=== PATIENT | female | born 1955 | race Caucasian/White ===

== ENCOUNTER 2017-07-03 11:55 | Emergency (ER) | payer OTHER ==
[2017-07-03 12:12] VITALS: BP 192/100
--- NOTE | 2017-07-03 12:34 | ED ---
Syncope/Near Syncope - HPI Summary HPI Summary: 61 yo WF h/o pituitary adenoma s/p removal 1 week ago and "CSF leak" priscila- operative period presents s/p recurrent syncopal episode while here to get a post-op lab work. Her surgery was at [facility] but has been having orthostatic dizziness with changes in position but has been steadily getting worse in the last week, now feels dizzy in sitting position, denies CP, current SBP 190, normal SBP per pt is 115 - History Of Current Complaint Chief Complaint: UCDizziness Time Seen by Provider: 07/03/17 12:02 Hx Obtained From: Patient Onset/Duration: Sudden Onset Timing: Seconds Context: Witnessed Aggravating Factor(s): Nothing Alleviating Factor(s): Nothing Associated Signs And Symptoms: Diaphoresis, Dizzy, Weakness - Allergies/Home Medications Allergies/Adverse Reactions: Allergies Allergy/AdvReac Type Severity Reaction Status Date / Time MS Sesame Oil [Sesame Oil] Allergy Anaphylatic Verified 07/03/17 12:12 Shock PUMPKIN SEEDS Allergy Anaphylatic Uncoded 07/03/17 12:12 Shock sesame Allergy Anaphylatic Uncoded 07/03/17 12:12 Shock Home Medications: Home Medications Cholecalciferol TAB* [Vitamin D TAB*] 1 tab PO DAILY 07/03/17 [History Confirmed 07/03/17] Cyanocobalamin (Vitamin B-12) [Vitamin B12] 1 tab PO DAILY 07/03/17 [History Confirmed 07/03/17] PMH/Surg Hx/FS Hx/Imm Hx Previously Healthy: No - Pimtuitary adenoma removal last week Endocrine/Hematology History: Denies: Hx Diabetes, Hx Thyroid Disease Cardiovascular History: Denies: Hx Hypertension, Hx Pacemaker/ICD Respiratory History: Reports: Hx Asthma Denies: Hx Chronic Obstructive Pulmonary Disease (COPD) GI History: Denies: Hx Ulcer History: Denies: Hx Renal Disease Musculoskeletal History: Denies: Hx Scoliosis Sensory History: Reports: Hx Hearing Aid Neurological History: Reports: Hx Headaches Denies: Other Neuro Impairments/Disorders Psychiatric History: Denies: Hx Panic Disorder - Cancer History Cancer Type, Location and Year: Pituitary adenoma - Surgical History Surgery Procedure, Year, and Place: 06/23 - REMOVAL OF PITUITARY MACROADINOMA - THROUGH SINUSES; BUNIONECTOMY- Rt ( NO METAL) Infectious Disease History: No Infectious Disease History: Denies: Hx Hepatitis, Hx Human Immunodeficiency Virus (HIV), Traveled Outside the [place] in Last 30 Days - Social History Alcohol Use: Daily Substance Use Type: Reports: None Hx Tobacco Use: No Smoking Status (MU): Former Smoker Review of Systems Positive: Fatigue, Skin Diaphoresis Eyes: Negative ENT: Negative Cardiovascular: Negative Respiratory: Negative Gastrointestinal: Negative Genitourinary: Negative Musculoskeletal: Negative Skin: Negative Positive: Weakness, Syncope. Negative: Paresthesia, Numbness, Slurred Speech Positive: Anxious All Other Systems Reviewed And Are Negative: Yes Physical Exam Triage Information Reviewed: Yes Vital Signs On Initial Exam: Initial Vitals Temp Pulse Resp BP Pulse Ox 37.1 C 72 20 192/100 100 07/03/17 12:07 07/03/17 12:07 07/03/17 12:07 07/03/17 12:07 07/03/17 12:07 Vital Signs Reviewed: Yes Appearance: Positive: No Pain Distress, Ill-Appearing Skin: Positive: Warm, Diaphoretic Head/Face: Positive: Normal Head/Face Inspection Eyes: Positive: Normal ENT: Positive: Normal ENT inspection Neck: Positive: Supple Respiratory/Lung Sounds: Positive: Clear to Auscultation Cardiovascular: Positive: RRR, Tachycardia, S1, S2 Musculoskeletal: Positive: Normal Neurological: Positive: CN Intact II-III Psychiatric: Positive: Normal AVPU Assessment: Alert Diagnostics - Vital Signs Vital Signs Temp Pulse Resp BP Pulse Ox 07/03/17 12:07 37.1 C 72 20 192/100 100 - Laboratory Lab Statement: Any lab studies that have been ordered have been reviewed, and results considered in the medical decision making process. Course/Dx Course Of Treatment: Pt increasing more orthostatic s/p syncope, now more dizzy while sitting, called for ambulance for transfer to ED - Diagnoses Provider Diagnoses: Syncope and collapse, Orthostatic dizziness, HTN (hypertension) Discharge - Sign-Out/Discharge Documenting (check all that apply): Discharge/Admit/Transfer - Discharge Plan Condition: Stable Disposition: TRANS [facility] Discharge Disposition Comment: Called [facility] and spoke to Dr Powell, pt to be transferred via ambulance Patient Education Materials: Syncope (ED), Lightheadedness (ED) Referrals: Diane Kent MD [Primary Care Provider] - - Billing Disposition and Condition Condition: STABLE Disposition: EMTALA
== END 2017-07-03 12:39 | disposition short-term general hospital (02) ==
LOC: UCEAST 11:55
DX: R42 Dizziness and giddiness (principal); R55 Syncope and collapse; I10 Essential (primary) hypertension; R53.1 Weakness; Z98.890 Other specified postprocedural states; Z91.018 Allergy to other foods; Z87.891 Personal history of nicotine dependence
CPT/HCPCS: 99213; G0463

== ENCOUNTER 2017-07-03 13:03 | Observation (INO) | payer OTHER ==
[2017-07-03] MEDS ORDERED: NS 0.9% 1000 ML* 1,000 ML IV ONE (14:06)
[2017-07-03] MEDS ORDERED: Meclizine TAB* 12.5 MG PO ONE (14:07)
--- NOTE | 2017-07-03 14:41 | RAD ---
INDICATION: Chest pain COMPARISON: June 05, 2017 TECHNIQUE: An AP portable view obtained at 1423 hours is submitted. FINDINGS: Bones/Soft Tissues: There are no acute bony findings. Cardiomediastinal: The cardiomediastinal silhouette is normal. Lungs: There are no infiltrates. Pleura: There are no pleural effusions. Other: None IMPRESSION: NO ACTIVE DISEASE.
[2017-07-03 15:22] LABS: ABS Basophils 0 10^3/ul (0-0.2); ABS Eosinophils 0.1 10^3/ul (0-0.6); ABS Monocytes 0.6 10^3/ul (0-0.8); ABS Neutrophils 6.4 10^3/ul (1.5-7.7); ABS Nucleated RBC 0 10^3/ul; Eosinophil % 0.8 % (0-6); Hematocrit 35 % (35-47); Hemoglobin 12.1 g/dl (12.0-16.0); Lymphocyte % 12.7 % (25-47); Mean Corpuscular HGB Conc 35 g/dl (31-36); Mean Corpuscular Hemoglobin 30 pg (27-31); Mean Corpuscular Volume 87 fL (80-97); Mean Platelet Volume 7.7 um3 (7.4-10.4); Nucleated Red Blood Cells % 0.1; Platelet Count 388 10^3/ul (150-450); Red Blood Count 4.03 10^6/ul (4.0-5.4); Red Cell Distribution Width 14 % (10.5-15); White Blood Count 8.1 10^3/ul (3.5-10.8)
[2017-07-03 15:34] LABS: INR 0.91 (0.77-1.02)
[2017-07-03 15:46] LABS: EGFR Non-African American 79.3 (>60)
[2017-07-03 16:58] LABS: Uric Acid 2.1 mg/dL (2.3-6.6)
[2017-07-03] MEDS ORDERED: KCL 20 MEQ/100 ML IVPREMIX* 20 MEQ/100 ML BAG IV ONE (17:02)
[2017-07-03] MEDS ORDERED: Potassium Chlor TAB* 20 MEQ TAB.ER PO ONE (18:12)
[2017-07-03] MEDS ORDERED: oxyCODONE/Acetamin 5/325 MG* TAB PO PRN (18:13)
[2017-07-03] MEDS ORDERED: Ibuprofen TAB* 800 MG PO PRN (18:13)
[2017-07-03] MEDS ORDERED: Ondansetron TAB* 4 MG PO PRN (18:13)
[2017-07-03] MEDS ORDERED: Acetaminophen TAB* 325 MG PO PRN (18:13)
[2017-07-03] MEDS ORDERED: Cyclobenzaprine TAB* 10 MG PO PRN (18:13)
[2017-07-03] MEDS ORDERED: Docusate CAP* 100 MG PO PRN (18:13)
--- NOTE | 2017-07-03 18:27 | ED ---
Columba Ross Gabriel, scribed for Victorina Parra MD on 07/03/17 at 1358 . Syncope/Near Syncope - HPI Summary HPI Summary: This patient is a 61 year old F [facility]IBA to [facility] c/o dizziness and near syncope that occurred [employer]. Pt was at getting a post OP blood drawn when she became dizzy and fell the ground she denies LOC. The patient rates the pain 2/10 in severity. While the patient was being registered she had fluctuating BP. Patient denies CP, SOB, head trauma, and LOC. Hx pituitary adenoma s/p removal 1 week ago and "CSF leak". Pt has orthostatic QUINTANA and dizziness often. Pt states she is very anxious currently. - History Of Current Complaint Chief Complaint: EDSyncope Time Seen by Provider: 07/03/17 13:16 Hx Obtained From: Patient Onset/Duration: Still Present Timing: Constant Activity At Onset: At Rest Aggravating Factor(s): Position Change Associated Signs And Symptoms: Negative - CP, SOB, head trauma, and LOC, Dizzy, Other - anxious - Allergies/Home Medications Allergies/Adverse Reactions: Allergies Allergy/AdvReac Type Severity Reaction Status Date / Time sesame oil Allergy Anaphylatic Verified 07/03/17 13:20 Shock sesame seed Allergy Anaphylatic Verified 07/03/17 13:20 Shock PUMPKIN SEEDS Allergy Anaphylatic Uncoded 07/03/17 12:12 Shock Home Medications: Home Medications Acetaminophen TAB* [Tylenol TAB*] 650 mg PO Q4H PRN 07/03/17 [History Confirmed 07/03/17] Beclomethasone 80 MCG MDI(NF) [Qvar 80 MCG MDI(NF)] 2 puff INH BID 07/03/17 [ History Confirmed 07/03/17] Cyclobenzaprine TAB* [Flexeril 10 MG TAB*] 5 mg PO Q8H PRN 07/03/17 [History Confirmed 07/03/17] Docusate CAP* [Colace Cap*] 100 mg PO BID PRN 07/03/17 [History Confirmed ] FLUoxetine CAP* [PROzac CAP*] 40 mg PO DAILY 07/03/17 [History Confirmed ] Ibuprofen TAB* [Motrin TAB* 800 MG] 800 mg PO TID PRN 07/03/17 [History Confirmed 07/03/17] Ondansetron TAB* [Zofran 4 MG Tab*] 4 - 8 mg PO Q8H PRN 07/03/17 [History Confirmed 07/03/17] Senna TAB* [Senokot TAB*] 1 tab PO BEDTIME 07/03/17 [History Confirmed 07/03/17] oxyCODONE/Acetamin 5/325 MG* [Percocet 5/325 TAB*] 1 tab PO Q4H PRN 07/03/17 [ History Confirmed 07/03/17] PMH/Surg Hx/FS Hx/Imm Hx Endocrine/Hematology History: Denies: Hx Diabetes, Hx Thyroid Disease Cardiovascular History: Denies: Hx Hypertension, Hx Pacemaker/ICD Respiratory History: Reports: Hx Asthma Denies: Hx Chronic Obstructive Pulmonary Disease (COPD) GI History: Denies: Hx Diverticulosis, Hx Ulcer History: Denies: Hx Renal Disease Musculoskeletal History: Denies: Hx Scoliosis Sensory History: Reports: Hx Hearing Aid Denies: Hx Eye Prosthesis Neurological History: Reports: Hx Headaches Denies: Other Neuro Impairments/Disorders Psychiatric History: Denies: Hx Panic Disorder - Cancer History Cancer Type, Location and Year: Pituitary adenoma - Surgical History Surgery Procedure, Year, and Place: 06/23 - REMOVAL OF PITUITARY MACROADINOMA - THROUGH SINUSES; BUNIONECTOMY- Rt ( NO METAL) Infectious Disease History: No Infectious Disease History: Denies: Hx Hepatitis, Hx Human Immunodeficiency Virus (HIV), Traveled Outside the [place] in Last 30 Days - Social History Alcohol Use: Daily Substance Use Type: Reports: None Hx Tobacco Use: No Smoking Status (MU): Former Smoker Review of Systems Constitutional: Negative - head injury Negative: Chest Pain Negative: Shortness Of Breath Neurological: Negative - LOC , Other - dizziness Positive: Syncope - near Positive: Anxious All Other Systems Reviewed And Are Negative: Yes Physical Exam - Summary Physical Exam Summary: GENERAL: Patient is a well developed and nourished F who is lying comfortable in the stretcher. Patient is not in any acute respiratory distress. HEAD AND FACE: Normocephalic EYES: PERRLA, EOMI x 2. EARS: Hearing grossly intact. MOUTH: Oropharynx within normal limits. NECK: Supple, trachea is midline, no adenopathy, no JVD, no carotid bruit. CHEST: Symmetric, no tenderness at palpation LUNGS: Clear to auscultation bilaterally. No wheezing or crackles. CVS: Regular rate and rhythm, S1 and S2 present, no murmurs or gallops appreciated. ABDOMEN: Soft, non-tender. Bowel sounds are normal. No abdominal abnormal pulsations. EXTREMITIES: Full ROM in all major joints, no edema, no cyanosis or clubbing. NEURO: Alert and oriented x 3. No acute neurological deficits. Speech is normal and follows commands. SKIN: Dry and warm Triage Information Reviewed: Yes Vital Signs On Initial Exam: Initial Vitals Temp Pulse Resp BP Pulse Ox 98.1 F 74 18 197/112 100 07/03/17 13:13 07/03/17 13:13 07/03/17 13:13 07/03/17 13:13 07/03/17 13:13 Vital Signs Reviewed: Yes Diagnostics - Vital Signs Vital Signs Temp Pulse Resp BP Pulse Ox 07/03/17 13:13 98.1 F 74 18 197/112 100 - Laboratory Result Diagrams: 07/03/17 15:13 07/03/17 15:13 Lab Statement: Any lab studies that have been ordered have been reviewed, and results considered in the medical decision making process. - Radiology CXR Radiology Interpretation Completed By: Radiologist - NO ACTIVE DISEASE. ED physician has reviewed this radiology report. - EKG 14:18 Cardiac Rate: NL EKG Rhythm: Sinus Rhythm - at 69 BPM EKG Interpretation: no ischemic changes Course/Dx Assessment/Plan: This patient is a 61 year old F BIBA to [facility] c/o dizziness and near syncope that occurred [employer]. Pt was at getting a post OP blood drawn when she became dizzy and fell the ground she denies LOC. The patient rates the pain 2/10 in severity. While the patient was being registered she had fluctuating BP. Patient denies CP, SOB, head trauma, and LOC. Hx pituitary adenoma s/p removal 1 week ago and "CSF leak". Pt has orthostatic QUINTANA and dizziness often. Pt states she is very anxious currently. An EKG reveals NSR. CXR reveals, per radiologist, NO ACTIVE DISEASE. Test results with no significant abnormalities except for a sodium of 123 and a potassium of 3.0. In the ED course the patient was given IV fluids and antivert. We discussed patient care with Dr. Jones and they have agreed to admit the patient. Patient will be admitted. The patient is agreeable with this plan. - Diagnoses Provider Diagnoses: Hypokalemia, Hyponatremia - Physician Notifications Discussed Care of Patient With: Levar Jones Time Discussed With Above Provider: 17:01 Instructed by Provider To: Admit As Inpatient Discharge - Sign-Out/Discharge Documenting (check all that apply): Discharge/Admit/Transfer - admitted - Discharge Plan Condition: Fair Disposition: ADMITTED TO [facility] Referrals: Diane Kent MD [Primary Care Provider] - The documentation as recorded by the Columba osborne Gabriel accurately reflects the service I personally performed and the decisions made by Fidel carrizales Tudie-Ann, MD.
[2017-07-03 19:13] LABS: EGFR Non-African American 83.1 (>60)
[2017-07-03] MEDS ORDERED: Mometasone 220 MCG MDI INH SCH (20:00)
[2017-07-03] MEDS ORDERED: Senna TAB PO SCH (21:00)
[2017-07-03] MEDS: Heparin VIAL(*) 5000 UNITS/ML VIAL (FIVE THOUSAND) SUBCUT SCH (21:45)
[2017-07-03] MEDS ORDERED: FLUoxetine CAP* 20 MG PO SCH (21:55)
--- NOTE | 2017-07-04 03:31 | HP ---
CC: Dr. Diane Kent * HISTORY AND PHYSICAL: DATE OF ADMISSION: 07/03/17 PRIMARY CARE PROVIDER: Dr. Diane Kent. ATTENDING PHYSICIAN: Dr. Levar Jones * (dictated by Geni Yeung NP) . CHIEF COMPLAINT: Dizziness and fall. HISTORY OF PRESENT ILLNESS: Ms. Mills is a 61-year-old female with past medical history significant for asthma, chronic headaches and pituitary adenoma , who approximately 1 week ago had an excision through her sinuses of her pituitary adenoma. She also states that she had a CSF leak at that time and it was patched with fat. She states during her hospitalization she had elevated sodium as well as a low sodium and stayed some extra days while this was corrected. She also reports when she had this same procedure 4 years ago, she also had issues with her sodium. She reports having orthostatic dizziness that has been progressively getting worse for the last week. Today, while going Urgent Care for labs, she felt dizzy and fell on the floor. She reports feeling lousy for 1 week, in the past this has lasted for 4 to 5 days and then resolved. She also reports burning on the middle of her tongue in addition to a red "streak" on her tongue and a metallic taste in her mouth. She denies any clear fluid from her nose. She also reports increased headache when she is sitting up. She denies any fevers, chills, urinary symptoms, numbness, tingling , weakness, loss of bowel or bladder control. She chronically has difficulty with her left eye and she feels her vision is at her baseline. She reports having a left-sided sharp chest discomfort today. She has shortness of breath at baseline secondary to her asthma and she has had some nausea and vomiting this week. Due to her fall at Urgent Care, she came to the emergency room for further evaluation. While in the emergency room, the patient had labs showing hyponatremia with a sodium of 123, hypokalemia with a potassium of 3.0. She had a troponin of 0.01. An EKG showing a sinus rhythm and no acute findings. A chest x-ray with no acute findings. A call was attempted to Dr. Dave Church at [place] regarding her symptoms and the ER did not receive a call back. While in the emergency room, the patient received a liter of normal saline, meclizine, and 20 mEq of IV potassium. The Hospitalists were asked to evaluate the patient for admission. PAST MEDICAL HISTORY: 1. Pituitary adenoma. 2. Asthma. 3. Chronic headaches. PAST SURGICAL HISTORY: 1. Status post excision of pituitary adenoma 4 years ago and again last week. 2. Status post bunionectomy. HOME MEDICATIONS: Include: 1. Flexeril 5 mg oral every 8 hours as needed for spasms. 2. Senna 1 tablet oral daily at bedtime. 3. Zofran 4 to 8 mg every 8 hours as needed for nausea. 4. Motrin 800 mg oral 3 times daily as needed for pain. 5. Percocet 5/325 one tablet oral every 4 hours as needed for pain. 6. Colace 100 mg oral twice daily. 7. Tylenol 650 mg oral every 4 hours as needed for fever or pain. 8. Prozac 40 mg oral daily. 9. QVAR 80 mcg 2 puffs inhalation twice daily. ALLERGIES: SESAME SEED OIL, SESAME SEED, and PUMPKIN SEED; all cause anaphylaxis. FAMILY HISTORY: The patient had a maternal aunt with a history of CVA. She denies any family history of coronary artery disease. She had an uncle with a history of diabetes mellitus, father with a history of pancreatic cancer, mother with brain cancer, a maternal aunt with breast cancer, a cousin with breast cancer, an uncle with liver cancer, and a paternal grandmother with breast cancer. SOCIAL HISTORY: She is a former smoker. She intermittently smoked from 1971 to 1978. She has not smoked since 1978. She drinks 1 to 2 glasses of wine daily. She denies recreational drug use. The patient's partner, Hortencia Merritt, will be her surrogate decision maker in the event she is unable to make decisions for herself. REVIEW OF SYSTEMS: I performed an 11-point review of systems. All the pertinent positives and negatives are mentioned in the history of present illness. The remaining review of systems are negative. PHYSICAL EXAMINATION GENERAL APPEARANCE: The patient is alert, pleasant and appears to be in no acute distress. VITAL SIGNS: Temperature 98.1, heart rate 79, respiratory rate 18, O2 sat 99% on room air, blood pressure 160/83. HEENT: Normocephalic, atraumatic. Pupils are equal and reactive to light. Extraocular movements are intact. Area of slight redness down the middle of her tongue. There are no signs of thrush, such as white plaques or abnormalities seen in the mouth. RESPIRATORY: There is no accessory muscle use. The lungs are clear to auscultation bilaterally. CARDIOVASCULAR: Regular rate and rhythm. S1, S2 present. There are no murmurs , rubs, or gallops heard. ABDOMEN: Soft, nondistended, nontender. There are bowel sounds present x4. EXTREMITIES: There is no lower extremity edema. DP and PT pulses are 2+ and symmetric. MUSCULOSKELETAL: There is no clubbing or cyanosis noted. The patient exhibits good strength in all extremities. NEUROLOGICAL: The patient is alert and oriented x4. Cranial nerves II through XII are grossly intact. PSYCHOLOGICAL: The patient is calm and cooperative. SKIN: There are no rashes or abnormalities seen. DIAGNOSTIC STUDIES/LABORATORY DATA: Sodium 123, potassium 3.0, chloride 85, CO2 26, BUN 7, creatinine 0.74, glucose 113. White blood cell count 8.1, hemoglobin 12.1, hematocrit 35, platelet count 388. Uric acid 2.1. Troponin 0.01. EKG shows a sinus rhythm, rate of 63, no acute signs of ischemia. There are no previous EKGs for comparison. Chest x-ray from today. Radiologist's impression: No active disease. IMPRESSION: Ms. Mills is a 61-year-old female with past medical history significant for asthma, chronic headaches, pituitary adenoma, who is status post recent resection, who presented to the emergency room for complaints of dizziness and chest pain. She will be admitted as an observation for chest pain and dizziness. ASSESSMENT/PLAN: 1. Chest pain. The patient's chest pain has resolved while in the emergency room. Her initial troponin is 0.00. We will continue to trend her troponins and monitor her on telemetry. I am not going to get a stress test on her in the setting of a recent procedure. Plan to check fasting lipids in the morning. If felt needed, she can have outpatient stress test once recovered from her surgery. 2. Dizziness. I suspect this is secondary to the patient's hyponatremia, although the differential includes a possible CSF leak. The patient is complaining of a headache that is worse when sitting up and a metallic taste in her mouth with burning on her tongue. I put a call out to Dr. Acosta Post at [place] and he has not yet returned a call. I wanted to discuss with Dr. Church if he feels that she needs further evaluation for a possible CSF leak. I also side consulted our neurosurgery iron melter just to run her symptoms by him, and he recommended contacting her Neurosurgeon. While in the emergency room, the patient received a liter of normal saline. I rechecked her sodium and her sodium has improved slightly. I am going to hold on any further fluid for now. I suspect that this represents SIADH in the setting of her recent surgery. I also put her on a fluid restriction. With plans to recheck her labs in the morning. Since she is complaining of orthostatic dizziness, we will check orthostatic vital signs also. 2. Hypokalemia. The patient will receive 20 mEq of IV potassium and 40 mEq of oral potassium tonight. We will recheck her labs in the morning. I will also add a magnesium onto the ED labs. If this is low, it should be replaced also. 3. Asthma. The patient will be continued on her home QVAR. There is no sign of an acute asthma exacerbation at this time. 4. Fluids, electrolytes and nutrition. She will be on a heart-healthy diet with 1500 mL fluid restriction. 5. Code status. Full code. 6. DVT prophylaxis. She is at high risk and will be on subcu heparin. 7. Disposition. Observation. TIME SPENT: Time for this admission was approximately 60 minutes, greater than half of that was spent with the patient discussing medications, past medical history, the events leading up to her arrival today, and performing a physical examination. The case has been reviewed with the attending, Dr. Jones, who agrees with the plan of care. Reviewed by PATRICIA SYED 07/04/17 1352 [id number]/[facility] #: [id number] MARIBETH
[2017-07-04] MEDS: Heparin VIAL(*) 5000 UNITS/ML VIAL (FIVE THOUSAND) SUBCUT SCH ×2 (06:03→12:30)
[2017-07-04 06:20] LABS: EGFR Non-African American 73.5 (>60)
[2017-07-04] MEDS ORDERED: FLUoxetine CAP* 20 MG PO SCH (09:00)
[2017-07-04 11:55] VITALS: BP 138/70
--- NOTE | 2017-07-05 04:18 | DS ---
CC: Dr. Kent; Dr. Dave Davalos Post, [facility], [address] [place] [address] 100 [id number] DISCHARGE SUMMARY: DATE OF ADMISSION: DATE OF DISCHARGE: 07/04/17 HISTORY: This 61-year-old woman came to emergency room because of dizziness and malaise. She fell d own when she got out of the car. She did not pass out. Her partner was with her. She had a resection of pituitary adenoma with repair of CSF leak about a week ago at [facility]. She was told to drink to thirst. She was thirsty all the time and drank a lot of fluids. Rest of the history is detailed in the admission note. After she arrived into the emergency room, yoli mars complained of sharp pain in her lower chest or upper abdomen, this has now gone. I note that she g zenaidaly walks 3 miles at a time several times a week for exercise and has not difficulty. The patient was admitted to a telemetry unit. She had 3 troponin levels all of which were within nor mal limits. As mentioned above, the chest pain completely resolved and was very atypical. She was g iven I believe a liter of saline. She was placed on fluid restriction. Her sodium increased rapidly from 123 in the emergency room to 135 the next morning. She felt much better. She did have orthost atic blood pressure measurements on 07/03/17, her lower diastolic was 81, the lowest systolic was 149 . There was little change between the blood pressure readings, pulse also changed very little varyin g from 68 to 85 among the 3 positions. She had all the laboratory tests the neurosurgeon asked for including cortisol, which was 23.6. TSH was 1.93, free T4 was 1.32. Other than the serum sodium, the chemistries were unremarkable. FINAL DIAGNOSES: 1. Hyponatremia. 2. Recent adenoma resection. 3. Asthma. DISCHARGE MEDICATIONS: 1. Fluoxetine 80 mg h.s. 2. Cyclobenzaprine 5 mg every 8 hours p.r.n. 3. Senna 1 h.s. 4. Ondansetron 4 to 8 mg every 8 hours p.r.n. 5. Ibuprofen 800 mg t.i.d. p.r.n. 6. Oxycodone/acetaminophen 5/325 one every 4 hours p.r.n. 7. Docusate 100 mg b.i.d. p.r.n. 8. Acetaminophen 650 mg every 4 hours p.r.n. 9. Beclomethasone 80 mcg 2 puffs inhalation b.i.d. [id number]/[facility] #: [id number]
== END 2017-07-04 12:51 | disposition home or self-care (01) ==
LOC: ED 13:03 → MEDTELE 17:41
PROVIDERS: ADMIT Internal Medicine; ATTEND Internal Medicine
DX: E87.1 Hypo-osmolality and hyponatremia (principal); E87.6 Hypokalemia; R42 Dizziness and giddiness; J45.909 Unspecified asthma, uncomplicated; D35.2 Benign neoplasm of pituitary gland; Z98.890 Other specified postprocedural states; R07.9 Chest pain, unspecified; Z79.899 Other long term (current) drug therapy; Z87.891 Personal history of nicotine dependence
CPT/HCPCS: 36415; 71045; 80048; 80053; 80061; 82530; 82533; 83605; 83735; 83880; 83930; 83935; 84439; 84443; 84481; 84484; 84550; 85025; 85610; 85730; 93005; 94640; 99283; A9270-GY; G0378; J1644; J3480

== ENCOUNTER 2017-07-05 15:48 | Emergency (ER) | payer OTHER ==
[2017-07-05 18:24] LABS: ABS Basophils 0 10^3/ul (0-0.2); ABS Eosinophils 0.2 10^3/ul (0-0.6); ABS Lymphocytes 1.4 10^3/ul (1.0-4.8); ABS Monocytes 0.8 10^3/ul (0-0.8); ABS Nucleated RBC 0 10^3/ul; Eosinophil % 2.3 % (0-6); Hematocrit 34 % (35-47); Hemoglobin 11.5 g/dl (12.0-16.0); Lymphocyte % 17.2 % (25-47); Mean Corpuscular HGB Conc 34 g/dl (31-36); Mean Corpuscular Hemoglobin 31 pg (27-31); Mean Corpuscular Volume 90 fL (80-97); Mean Platelet Volume 7.3 um3 (7.4-10.4); Nucleated Red Blood Cells % 0; Platelet Count 439 10^3/ul (150-450); Red Blood Count 3.78 10^6/ul (4.0-5.4); Red Cell Distribution Width 15 % (10.5-15); White Blood Count 8.4 10^3/ul (3.5-10.8)
[2017-07-05 18:41] LABS: EGFR Non-African American 64.1 (>60)
[2017-07-05 18:50] LABS: Urine Appearance Clear; Urine Blood Negative (Negative); Urine Color Yellow; Urine Ketones Negative (Negative); Urine Protein Negative (Negative); Urine Specific Gravity 1.006 (1.010-1.030); Urine Urobilinogen Negative (Negative)
[2017-07-05 19:59] VITALS: BP 162/90
--- NOTE | 2017-07-05 21:47 | ED ---
Estevan Ross Natalie, scribed for Michele Powell MD on 07/05/17 at 1801 . Dizziness - HPI Summary HPI Summary: The patient is a 61 y/o F presenting to the ED c/o intermittent episodes of dizziness and fatigue starting 07/03/17. She had pituitary adenoma surgery on at [place]. She was kept for an extra day due to hypernatremia, and was releasaed a week ago. On 07/03/17, she went to get labwork done and felt dizzy and syncoped while walking inside. She was then admitted to [facility] [place] for overnight observation, where it was found that she had hyponatremia and hypokalemia, but she was released yesterday after being treated. She felt lightheaded, weak, and tired this morning and almost had another syncopal episode. Patient denies CP, headache, constipation, diarrhea, nausea, vomiting, and fever. She states that she has also been on a fluid restriction to 2 quarts of liquid a day, but she feels slightly dehydrated. - History Of Current Complaint Chief Complaint: EDDizziness Stated Complaint: DIZZY, LIGHTHEADED WEAK Time Seen by Provider: 07/05/17 17:13 Hx Obtained From: Patient Onset/Duration: Still Present Timing: Intermittent Episode Lasting Severity Initially: Moderate Severity Currently: Moderate Character: Lightheaded, Dizzy Aggravating Factor(s): Nothing Alleviating Factor(s): Nothing Associated Signs And Symptoms: Positive: Negative - constipation, headache, Decreased Oral Intake - due to liquid restriction, Other: - dehydration, fatigue. Negative: Nausea, Vomiting, Diarrhea, Chest Pain, SOB, Fever - Allergies/Home Medications Allergies/Adverse Reactions: Allergies Allergy/AdvReac Type Severity Reaction Status Date / Time sesame oil Allergy Anaphylatic Verified 07/05/17 15:54 Shock sesame seed Allergy Anaphylatic Verified 07/05/17 15:54 Shock PUMPKIN SEEDS Allergy Anaphylatic Uncoded 07/05/17 15:54 Shock PMH/Surg Hx/FS Hx/Imm Hx Endocrine/Hematology History: Denies: Hx Diabetes, Hx Thyroid Disease Cardiovascular History: Reports: Hx Hypercholesterolemia - declines interventions Denies: Hx Hypertension, Hx Pacemaker/ICD Respiratory History: Reports: Hx Asthma, Hx Sleep Apnea Denies: Hx Chronic Obstructive Pulmonary Disease (COPD) GI History: Denies: Hx Diverticulosis, Hx Ulcer History: Denies: Hx Renal Disease Musculoskeletal History: Denies: Hx Scoliosis Sensory History: Reports: Hx Contacts or Glasses - reading, Hx Hearing Aid Denies: Hx Eye Prosthesis, Other Sensory Impairments Opthamlomology History: Reports: Hx Contacts or Glasses - reading Denies: Hx Eye Prosthesis, Other Sensory Impairments Neurological History: Reports: Hx Headaches Denies: Other Neuro Impairments/Disorders Psychiatric History: Reports: Hx Anxiety, Hx Depression Denies: Hx Panic Disorder - Cancer History Cancer Type, Location and Year: Pituitary adenoma - Surgical History Surgery Procedure, Year, and Place: 06/23 - REMOVAL OF PITUITARY MACROADINOMA - THROUGH SINUSES; BUNIONECTOMY- Rt ( NO METAL) Infectious Disease History: No Infectious Disease History: Denies: Hx Hepatitis, Hx Human Immunodeficiency Virus (HIV), Hx Shingles, Hx Tuberculosis, Traveled Outside the [place] in Last 30 Days - Family History Known Family History: Negative: Diabetes - Social History Alcohol Use: Daily Substance Use Type: Reports: None Hx Tobacco Use: No Smoking Status (MU): Former Smoker Review of Systems Positive: Fatigue, Other - dizziness, dehydrated, lightheaded. Negative: Fever Negative: Chest Pain Negative: Shortness Of Breath Negative: Vomiting, Diarrhea, Nausea Negative: Headache All Other Systems Reviewed And Are Negative: Yes Physical Exam - Summary Physical Exam Summary: VITAL SIGNS: Reviewed. GENERAL: Patient is a well-developed and nourished male who is lying comfortable in the stretcher. Patient is not in any acute respiratory distress. HEAD AND FACE: No signs of trauma. No ecchymosis, hematomas or skull depressions. No sinus tenderness. EYES: PERRLA, EOMI x 2, No injected conjunctiva, no nystagmus. EARS: Hearing grossly intact. Ear canals and tympanic membranes are within normal limits. MOUTH: Oropharynx within normal limits. NECK: Supple, trachea is midline, no adenopathy, no JVD, no carotid bruit, no c- spine tenderness, neck with full ROM. CHEST: Symmetric, no tenderness at palpation LUNGS: Clear to auscultation bilaterally. No wheezing or crackles. CVS: Regular rate and rhythm, S1 and S2 present, no murmurs or gallops appreciated. ABDOMEN: Soft, non-tender. No signs of distention. No rebound no guarding, and no masses palpated. Bowel sounds are normal. EXTREMITIES: FROM in all major joints, no edema, no cyanosis or clubbing. NEURO: Alert and oriented x 3. No acute neurological deficits. Speech is normal and follows commands. SKIN: Dry and warm Triage Information Reviewed: Yes Vital Signs On Initial Exam: Initial Vitals Temp Pulse Resp BP Pulse Ox 97.2 F 73 16 166/97 100 07/05/17 15:54 07/05/17 15:54 07/05/17 15:54 07/05/17 15:54 07/05/17 15:54 Vital Signs Reviewed: Yes Diagnostics - Vital Signs Vital Signs Temp Pulse Resp BP Pulse Ox 07/05/17 17:10 80 19 152/90 98 07/05/17 15:54 97.2 F 73 16 166/97 100 - Laboratory Lab Results: Lab Results 07/05/17 07/05/17 07/05/17 Range/Units 18:11 18:11 18:11 WBC 8.4 (3.5-10.8) 10^3/ul RBC 3.78 L (4.0-5.4) 10^6/ul Hgb 11.5 L (12.0-16.0) g/dl Hct 34 L (35-47) % MCV 90 (80-97) fL MCH 31 (27-31) pg MCHC 34 (31-36) g/dl RDW 15 (10.5-15) % Plt Count 439 (150-450) 10^3/ul MPV 7.3 L (7.4-10.4) um3 Neut % (Auto) 71.0 (38-83) % Lymph % (Auto) 17.2 L (25-47) % [place] % (Auto) 9.1 H (0-7) % Eos % (Auto) 2.3 (0-6) % Baso % (Auto) 0.4 (0-2) % Absolute Neuts (auto) 6.0 (1.5-7.7) 10^3/ul Absolute Lymphs (auto) 1.4 (1.0-4.8) 10^3/ul Absolute Monos (auto) 0.8 (0-0.8) 10^3/ul Absolute Eos (auto) 0.2 (0-0.6) 10^3/ul Absolute Basos (auto) 0 (0-0.2) 10^3/ul Absolute Nucleated RBC 0 10^3/ul Nucleated RBC % 0 Sodium 137 L (139-145) mmol/L Potassium 4.0 (3.5-5.0) mmol/L Chloride 103 (101-111) mmol/L Carbon Dioxide 26 (22-32) mmol/L Anion Gap 8 (2-11) mmol/L BUN 12 (6-24) mg/dL Creatinine 0.89 (0.51-0.95) mg/dL Est GFR ( Amer) 82.4 (>60) Est GFR (Non-Af Amer) 64.1 (>60) BUN/Creatinine Ratio 13.5 (8-20) Glucose 110 H (70-100) mg/dL Lactic Acid 0.7 (0.5-2.0) mmol/L Calcium 9.2 (8.6-10.3) mg/dL Magnesium 2.3 (1.9-2.7) mg/dL Total Bilirubin 0.30 (0.2-1.0) mg/dL AST 15 (13-39) U/L ALT 20 (7-52) U/L Alkaline Phosphatase 51 (34-104) U/L Total Creatine Kinase 30 (10-223) U/L Troponin I 0.00 (<0.04) ng/mL C-Reactive Protein 8.82 H (< 5.00) mg/L B-Natriuretic Peptide ( - 100) pg/mL Total Protein 6.4 (6.4-8.9) g/dL Albumin 3.7 (3.2-5.2) g/dL Globulin 2.7 (2-4) g/dL Albumin/Globulin Ratio 1.4 (1-3) TSH 1.39 (0.34-5.60) mcIU/mL Urine Color Urine Appearance Urine pH (5-9) Ur Specific [place] (1.010-1.030) Urine Protein (Negative) Urine Ketones (Negative) Urine Blood (Negative) Urine Nitrate (Negative) Urine Bilirubin (Negative) Urine Urobilinogen (Negative) Ur Leukocyte Esterase (Negative) Urine Glucose (Negative) 07/05/17 07/05/17 Range/Units 18:11 18:38 WBC (3.5-10.8) 10^3/ul RBC (4.0-5.4) 10^6/ul Hgb (12.0-16.0) g/dl Hct (35-47) % MCV (80-97) fL MCH (27-31) pg MCHC (31-36) g/dl RDW (10.5-15) % Plt Count (150-450) 10^3/ul MPV (7.4-10.4) um3 Neut % (Auto) (38-83) % Lymph % (Auto) (25-47) % [place] % (Auto) (0-7) % Eos % (Auto) (0-6) % Baso % (Auto) (0-2) % Absolute Neuts (auto) (1.5-7.7) 10^3/ul Absolute Lymphs (auto) (1.0-4.8) 10^3/ul Absolute Monos (auto) (0-0.8) 10^3/ul Absolute Eos (auto) (0-0.6) 10^3/ul Absolute Basos (auto) (0-0.2) 10^3/ul Absolute Nucleated RBC 10^3/ul Nucleated RBC % Sodium (139-145) mmol/L Potassium (3.5-5.0) mmol/L Chloride (101-111) mmol/L Carbon Dioxide (22-32) mmol/L Anion Gap (2-11) mmol/L BUN (6-24) mg/dL Creatinine (0.51-0.95) mg/dL Est GFR ( Amer) (>60) Est GFR (Non-Af Amer) (>60) BUN/Creatinine Ratio (8-20) Glucose (70-100) mg/dL Lactic Acid (0.5-2.0) mmol/L Calcium (8.6-10.3) mg/dL Magnesium (1.9-2.7) mg/dL Total Bilirubin (0.2-1.0) mg/dL AST (13-39) U/L ALT (7-52) U/L Alkaline Phosphatase (34-104) U/L Total Creatine Kinase (10-223) U/L Troponin I (<0.04) ng/mL C-Reactive Protein (< 5.00) mg/L B-Natriuretic Peptide 23 ( - 100) pg/mL Total Protein (6.4-8.9) g/dL Albumin (3.2-5.2) g/dL Globulin (2-4) g/dL Albumin/Globulin Ratio (1-3) TSH (0.34-5.60) mcIU/mL Urine Color Yellow Urine Appearance Clear Urine pH 7.0 (5-9) Ur Specific [place] 1.006 L (1.010-1.030) Urine Protein Negative (Negative) Urine Ketones Negative (Negative) Urine Blood Negative (Negative) Urine Nitrate Negative (Negative) Urine Bilirubin Negative (Negative) Urine Urobilinogen Negative (Negative) Ur Leukocyte Esterase Negative (Negative) Urine Glucose Negative (Negative) Result Diagrams: 07/05/17 18:11 07/05/17 18:11 Lab Statement: Any lab studies that have been ordered have been reviewed, and results considered in the medical decision making process. - EKG 17:17 Cardiac Rate: NL EKG Rhythm: Sinus Rhythm - 81BPM EKG Interpretation: No ST elevation. Re-Evaluation - Re-Evaluation First Eval Re-Evaluation Time: 19:25 Change: Improved Comment: I spoke with the patient concerning discharge home. Dizzy Course/Dx - Course Assessment/Plan: The patient is a 61 y/o F presenting to the ED c/o intermittent episodes of dizziness and fatigue starting 07/03/17. She had pituitary adenoma surgery on 06/26/17 at [place]. She was kept for an extra day due to hypernatremia, and was released a week ago. On 07/03/17, she went to get lab work done and felt dizzy and syncope while walking inside. She was then admitted to [facility] [place] for overnight observation, where it was found that she had hyponatremia and hypokalemia, but she was released yesterday after being treated. She felt lightheaded, weak, and tired this morning and almost had another syncopal episode. Patient denies CP, headache, constipation, diarrhea, nausea, vomiting, and fever. She states that she has also been on a fluid restriction to 2 quarts of liquid a day, but she feels slightly dehydrated. Blood test results show some slight anemia with hemoglobin 11.5 and hematocrit of 34. Sodium of 137, glucose of 110, CRP of 8.8. Urinalysis is negative for UTI. She is also to work as a baseline and also the patient was asymptomatic the patient will be discharged home with follow with primary care physician. I discussed all the findings and test results with the patient. Patient was instructed to return to the emergency room immediately if any of the symptoms return or worsens. Plan of care was discussed with the patient and understands and agrees. All questions were answered at patient satisfaction. There were no further complaints or concerns. Lung exam before discharge: CTA B/L. Good air exchange. No wheezing or crackles heard. CVS: S1 and S2 present. No murmurs appreciated. Patient is alert and oriented x 3. Patient is hemodynamically stable. Patient will be discharged home with follow up PCP in the next 2-3 days - Diagnoses Provider Diagnoses: Dizziness Discharge - Sign-Out/Discharge Documenting (check all that apply): Discharge/Admit/Transfer - Discharge Plan Condition: Stable Disposition: HOME Patient Education Materials: Dizziness (ED) Referrals: Diane Kent MD [Primary Care Provider] - 1 Week Additional Instructions: FOLLOW UP WITH YOUR PRIMARY CARE PROVIDER WITHIN ONE WEEK FOR HIGH BLOOD PRESSURE NOTED TODAY. RETURN TO THE ED FOR ANY WORSENING OR NEW SYMPTOMS. - Billing Disposition and Condition Condition: STABLE Disposition: HOME The documentation as recorded by the Estevan osborne Natalie accurately reflects the service I personally performed and the decisions made by me, Michele Powell MD.
== END 2017-07-05 20:00 | disposition home or self-care (01) ==
LOC: ED 15:48
DX: R42 Dizziness and giddiness (principal); R53.83 Other fatigue; E78.00 Pure hypercholesterolemia, unspecified; J45.909 Unspecified asthma, uncomplicated; F41.9 Anxiety disorder, unspecified; F32.9 Major depressive disorder, single episode, unspecified; Z86.018 Personal history of other benign neoplasm; Z87.891 Personal history of nicotine dependence
CPT/HCPCS: 36415; 80053; 81003; 82550; 83605; 83735; 83880; 84443; 84484; 85025; 86140; 93005; 99282

== ENCOUNTER 2017-10-05 10:55 | Inpatient (IN) | payer OTHER ==
--- NOTE | 2017-10-05 11:51 | ED ---
Complex/Multi-Sys Presentation - HPI Summary HPI Summary: A 62 y/o female presents to ED c/o nausea and vomiting. Additionally c/o generalized weakness. As per triage, "pt dx with Diabetes insipidus post pituitary complications. Pt of dr. malik. Pt states she had started a POmedication and stopped it due to n/v low sodium. pt here today with c/o nausea, throwing up, shakiness, pt feels like her sodium may be low. Pt was restarted on nasal spray of the same medication and returns today with the above s/s as cheif complaint". According to the patient, she has been experiencing a "long chain of events" since her pituitary surgery in June 2017. She stated that she has been experiencing hyponatremia (low sodium) and has been in and out of the hospital for it. After the surgery and hyponatremia, she had diabetes insipidus where her MD prescribed her on oral pills. She stated that the pills has been making her feel very sick and upon discussing her symptoms with her MD, she has also put on a nasal spray which has not been helping. Some symptoms include nausea, vomiting and generalized weakness which has been ongoing since yesterday. Pt denies any CP, SOB, abdominal pain, edema of legs. SHx of no ETOH or smoking "today". - History Of Current Complaint Chief Complaint: EDNauseaVomitDiarrh Time Seen by Provider: 10/05/17 11:43 Hx Obtained From: Patient Onset/Duration: Sudden Onset, Lasting Days, Still Present Timing: Constant Severity Currently: None Location: Negative Aggravating Factor(s): PRESCRIBED MEDICATION Alleviating Factor(s): NOTHING Associated Signs And Symptoms: Positive: Weakness - Generalized, Nausea, Vomiting. Negative: SOB, Chest Pain, Edema, Fever - Allergies/Home Medications Allergies/Adverse Reactions: Allergies Allergy/AdvReac Type Severity Reaction Status Date / Time desmopressin Allergy See Comment Verified 10/05/17 13:34 sesame oil Allergy Anaphylatic Verified 10/05/17 11:01 Shock sesame seed Allergy Anaphylatic Verified 10/05/17 11:01 Shock PUMPKIN SEEDS Allergy Anaphylatic Uncoded 10/05/17 11:01 Shock Home Medications: Home Medications Desmopressin 0.01% NASAL* 10 mcg BOTH NARES BID 10/05/17 [History Confirmed ] PMH/Surg Hx/FS Hx/Imm Hx Endocrine/Hematology History: Denies: Hx Diabetes, Hx Thyroid Disease Cardiovascular History: Reports: Hx Hypercholesterolemia - declines interventions Denies: Hx Hypertension, Hx Pacemaker/ICD Respiratory History: Reports: Hx Asthma, Hx Sleep Apnea Denies: Hx Chronic Obstructive Pulmonary Disease (COPD) GI History: Denies: Hx Diverticulosis, Hx Ulcer History: Denies: Hx Renal Disease Musculoskeletal History: Denies: Hx Scoliosis Sensory History: Reports: Hx Contacts or Glasses - reading, Hx Hearing Aid Denies: Hx Eye Prosthesis, Other Sensory Impairments Opthamlomology History: Reports: Hx Contacts or Glasses - reading Denies: Hx Eye Prosthesis, Other Sensory Impairments Neurological History: Reports: Hx Headaches Denies: Other Neuro Impairments/Disorders Psychiatric History: Reports: Hx Anxiety, Hx Depression Denies: Hx Panic Disorder - Cancer History Cancer Type, Location and Year: Pituitary adenoma - Surgical History Surgery Procedure, Year, and Place: 06/23 - REMOVAL OF PITUITARY MACROADINOMA - THROUGH SINUSES; BUNIONECTOMY- Rt ( NO METAL) Infectious Disease History: No Infectious Disease History: Denies: Hx Hepatitis, Hx Human Immunodeficiency Virus (HIV), Hx Shingles, Hx Tuberculosis, Traveled Outside the [place] in Last 30 Days - Family History Known Family History: Negative: Diabetes - Social History Alcohol Use: Daily Substance Use Type: Reports: None Hx Tobacco Use: No Smoking Status (MU): Former Smoker Review of Systems Negative: Fever Negative: Chest Pain Negative: Shortness Of Breath Positive: Vomiting, Nausea. Negative: Abdominal Pain Negative: Edema Positive: Weakness - Generalized All Other Systems Reviewed And Are Negative: Yes Physical Exam - Summary Physical Exam Summary: Appearance: Well appearing, no pain distress Skin: warm, dry, reflects adequate perfusion Head/face: normal Eyes: EOMI, BIGG ENT: normal Neck: supple, non-tender Respiratory: CTA, breath sounds present Cardiovascular: RRR, pulses symmetrical Abdomen: non-tender, soft Bowel: present Musculoskeletal: normal, strength/ROM intact Neuro: normal, sensory motor intact, A&Ox3 Triage Information Reviewed: Yes Vital Signs On Initial Exam: Initial Vitals Temp Pulse Resp BP Pulse Ox 97.8 F 67 18 173/88 98 10/05/17 11:01 10/05/17 11:01 10/05/17 11:01 10/05/17 11:01 10/05/17 11:01 Vital Signs Reviewed: Yes Diagnostics - Vital Signs Vital Signs Temp Pulse Resp BP Pulse Ox 10/05/17 11:01 97.8 F 67 18 173/88 98 - Laboratory Result Diagrams: 10/05/17 12:43 10/05/17 12:43 Lab Statement: Any lab studies that have been ordered have been reviewed, and results considered in the medical decision making process. - Radiology CXR Radiology Interpretation Completed By: Radiologist - No radiographic evidence of acute cardiopulmonary disease. ED PHYSICIAN REVIEWED THIS RADIOLOGY REPORT. - EKG 1219 Cardiac Rate: NL - 61 BPM EKG Rhythm: Sinus Rhythm EKG Interpretation: No acute changes. Complex Multi-Symp Course/Dx Course Of Treatment: A 62 y/o female presents to ED c/o nausea and vomiting. Additionally c/o generalized weakness. Prescribed pills for her diabetes insipidus has been making her feel very sick and upon discussing her symptoms with her MD, she has also put on a nasal spray which has not been helping. A CXR and EKG was all within normal limits. Additionally a UA and blood work was done. In the ED course, the patient recieved IV fluids. Patient care was discussed with hospitalist, Dr. Enriquez, who accepts patient for admission. Patient will be admitted with a diagnosis of hyponatremia. Patient is agreeable with this plan. - Diagnoses Differential Diagnoses/HQI/PQRI: Metabolic Abnormality, Urinary Tract Infection , Other - hyponatremia Provider Diagnoses: Hyponatremia - Physician Notifications Discussed Care Of Patient With: Flaca Hauser Time Discussed With Above Provider: 13:14 Instructed by Provider To: Other - Accepts patient for admission. Discharge - Sign-Out/Discharge Documenting (check all that apply): Patient Departure - ADMIT - Discharge Plan Condition: Stable Disposition: ADMITTED TO [facility] Referrals: Diane Kent MD [Primary Care Provider] - - Billing Disposition and Condition Condition: STABLE Disposition: Admitted to [facility] - Attestation Statements Document Initiated by Scribe: Yes Documenting Scribe: Polo Rooney Provider For Whom Scribe is Documenting (Include Credential): Reji Pascal MD Scribe Attestation: Polo Ross, scribed for Reji Pascal MD on 10/05/17 at 1509. Scribe Documentation Reviewed: Yes Provider Attestation: The documentation as recorded by the scribe, Polo Rooney accurately reflects the service I personally performed and the decisions made by me, Reji Pascal MD
[2017-10-05 12:24] LABS: Urine Appearance Clear; Urine Blood 1+ (Negative); Urine Color Colorless; Urine Ketones Trace (Negative); Urine Protein Negative (Negative); Urine Red Blood Cell Trace(0-2/hpf) (Absent); Urine Specific Gravity 1.001 (1.010-1.030); Urine Urobilinogen Negative (Negative); Urine White Blood Cell Absent (Absent)
--- NOTE | 2017-10-05 12:50 | RAD ---
INDICATION: Weakness and dizziness and a woman potential experiencing an allergic reaction. COMPARISON: Most recent comparison chest x-rays dated July 03, 2017 TECHNIQUE: PA and lateral views of the chest were obtained. FINDINGS: The heart and mediastinum are normal in size and contour. The lungs are grossly clear. There is no evidence of large pleural effusion. Visualized bones are normal for the patient's age. There is no radiographic evidence of free air beneath the diaphragm IMPRESSION: No radiographic evidence of acute cardiopulmonary disease.
[2017-10-05 12:51] LABS: ABS Basophils 0 10^3/ul (0-0.2); ABS Eosinophils 0 10^3/ul (0-0.6); ABS Lymphocytes 0.6 10^3/ul (1.0-4.8); ABS Monocytes 0.3 10^3/ul (0-0.8); ABS Neutrophils 6.3 10^3/ul (1.5-7.7); ABS Nucleated RBC 0 10^3/ul; Eosinophil % 0.2 % (0-6); Hematocrit 35 % (35-47); Mean Corpuscular HGB Conc 35 g/dl (31-36); Mean Corpuscular Hemoglobin 30 pg (27-31); Mean Corpuscular Volume 86 fL (80-97); Mean Platelet Volume 7.6 um3 (7.4-10.4); Nucleated Red Blood Cells % 0.1; Platelet Count 273 10^3/ul (150-450); Red Blood Count 4.03 10^6/ul (4.00-5.40); Red Cell Distribution Width 14 % (10.5-15); White Blood Count 7.2 10^3/ul (3.5-10.8)
[2017-10-05 12:59] LABS: INR 0.96 (0.77-1.02)
[2017-10-05 13:08] LABS: EGFR Non-African American 91.8 (>60)
[2017-10-05] MEDS ORDERED: NS 0.9% 1000 ML* 1,000 ML IV SCH (13:15)
[2017-10-05] MEDS ORDERED: Ondansetron INJ* 2 MG/ML VIAL IV PRN (14:41)
[2017-10-05] MEDS ORDERED: Ondansetron INJ* 2 MG/ML VIAL IV ONE (14:57)
[2017-10-05] MEDS ORDERED: Albuterol 2.5 MG/3 ML NEB.SOL* (0.083%) INH PRN (14:58)
[2017-10-05] MEDS ORDERED: oxyCODONE/Acetamin 5/325 MG* TAB PO PRN (15:12)
[2017-10-05] MEDS ORDERED: DESMOPRESSIN 0.01% ALT NARE ONE (17:14)
[2017-10-05] MEDS: Mometasone 220 MCG MDI INH SCH (20:10)
--- NOTE | 2017-10-05 20:53 | HP ---
CC: Dr. Diane Kent; Dr. Ty Elizabeth * ADMISSION HISTORY AND PHYSICAL: DATE OF ADMISSION: 10/05/17 PRIMARY CARE PROVIDER: Dr. Diane Kent. OUTPATIENT SUPERVISOR PUMPING STATION: Dr. Ty Elizabeth. MY ATTENDING WHILE IN THE HOSPITAL: Dr. Flaca Roque.* (DICTATED BY ELIAZAR FAIR) CHIEF COMPLAINT: Dizziness, nausea, vomiting, hyponatremia. HISTORY OF PRESENT ILLNESS: Ms. Mills is a 62-year-old female with past medical history significant for pituitary tumor, status post resection with postoperative DI; obstructive sleep apnea; asthma and GERD, who presents to the emergency department because she has been having issues with her sodium outpatient. She is having unquenchable thirst and significant diuresis since she had her surgery earlier this year. The patient was diagnosed with diabetes insipidus with Dr. Elizabeth, outpatient and was given initially pills and these made her feel terrible with nausea and vomiting and a general feeling of unwellness. These were stopped and was converted to nasal spray at 10 mcg both nares b.i.d. This was started last night, 10/02/17. The patient took a dose that day, two doses on Friday and then a dose on Friday morning and due to feeling terrible, stopped. The patient soon after that began developing significant diuresis. The patient felt through this time dizzy, nauseous, vomiting, and somewhat confused. The patient also complains of change in her taste and smell. The patient also had some dizziness and unsteadiness, but no blurring of vision, no double vision, no loss of consciousness, no seizures, no other focal deficits. The patient has no chest pain, shortness of breath. No nasal drainage. The patient has had no other recent changes in medications. The patient denies fever, chills, or sick contacts. The patient has a mild low level cough at all times due to her asthma. The patient came into the emergency department and had a sodium of 119 with no other significant laboratory deficits except for a urine specific gravity of 0.001. The patient due to critically low sodium will be admitted to the hospital. PAST MEDICAL HISTORY: Pituitary tumor, obstructive sleep apnea, asthma, chronic pain, GERD, diabetes insipidus. PAST SURGICAL HISTORY: Transsphenoidal pituitary resection, bunion repair remotely. MEDICATIONS: The patient states the only medications she takes are: 1. Albuterol nebulizer as needed q.4 hours. 2. ProAir inhaler 2 puffs q.4 hours as needed. 3. Ibuprofen 800 mg daily as needed. She takes this infrequently. 4. Fluoxetine 80 mg p.o. daily. 5. Vitamin B12 1000 mcg injection monthly. 6. QVAR 80 mcg 2 puffs b.i.d. 7. Most recently taking desmopressin 10 mcg both nares b.i.d. ALLERGIES: SESAME SEED OIL, SESAME SEED, PUMPKIN SEEDS. The patient has DESMOPRESSIN tablet listed in allergy. FAMILY HISTORY: The patient's father had pancreatic cancer. The patient's mother had brain cancer. The patient had maternal aunt with breast cancer, cousin with breast cancer, and uncle with liver cancer. A paternal grandmother with breast cancer, maternal aunt with history of CVA, and an uncle with history of diabetes. SOCIAL HISTORY: The patient smoked from the years of 1971 to 1978. She has not smoked since then. She still drinks 1 to 2 glasses of wine daily. She denies recreational drug use. The patient's partner, Hortencia Merritt, will be her surrogate decision maker. Hortencia recently broke her ankle and would not be available to come to the hospital during the hospitalization. REVIEW OF SYSTEMS: A 14-point review of systems was reviewed and is negative except as above in the HPI. PHYSICAL EXAMINATION GENERAL: The patient is a 62-year-old female, who appears stated age and sitting comfortably in bed, in no acute distress. HEENT: Head is normocephalic, atraumatic. Sclerae anicteric. No conjunctival injection. Nasal mucosa moist. Oral mucosa moist. No pharyngeal erythema, discharge, or exudate. NECK: Supple, nontender. No lymphadenopathy. No carotid bruits auscultated. No JVD. RESPIRATORY: Clear to auscultation bilaterally. No wheezes, rales, or rhonchi. Good air exchange bilaterally. CARDIAC: Regular rate and rhythm. No clicks, murmurs, gallops, or rubs. Pulses are 2+ in the bilateral dorsalis pedis, posterior tibial, and radial areas. ABDOMEN: Soft, nontender, nondistended. Bowel sounds present and normoactive in all 4 quadrants. No hepatosplenomegaly. No abdominal bruits auscultated. No hepatojugular reflux. GENITOURINARY: Full bladder, tender to palpation. No CVA tenderness. NEURO: Cranial nerves II through XII intact. No focal deficits. Alert and oriented x3. Steady gait. SKIN: Clean, dry, intact. No rash. DIAGNOSTIC STUDIES/LAB DATA: White blood cell count 7.2, hemoglobin 12.0, hematocrit 35, platelet count 273. INR 0.6, APTT 34.0. Sodium 119, potassium 3.6, chloride 87, carbon dioxide 25, anion gap 7, BUN 6, creatinine 0.65, glucose 124, calcium 9.2. Bilirubin 0.8, AST 27, ALT 25, alkaline phosphatase 64. Troponin I of 0.00. Protein 6.6, albumin 4.1, globulin 2.5. Urine is clear, specific gravity of 0.001, protein negative, trace ketones, 1+ blood, negative nitrite, negative bilirubin, no other significant findings. Studies: Chest x-ray show no active cardiopulmonary disease. EKG shows normal sinus rhythm. No ST segment abnormalities. No T-wave inversions. No blocks or hypertrophy. Rate of 61, QTc of 452. ASSESSMENT AND PLAN/IMPRESSION: Ms. Mills is a 62-year-old female with a past medical history significant for pituitary tumor, status post resection with postoperative diabetes insipidus, who was recently started on treatment with desmopressin and subsequently developed hyponatremia. The patient has previously had issues with hyponatremia possibly in association with polydipsia likely due to diabetes insipidus, who is currently quite symptomatic from her hyponatremia. The patient will be admitted to the hospital for slow correction of her hyponatremia. 1. Hyponatremia likely due to overdose of desmopressin. The patient had diabetes insipidus. It is unknown at this time what level her sodium went up to previously or if this was just treated off of clinical symptoms. The patient has been having uncontrollable thirst and significant diuresis since her surgery. The patient was started on desmopressin initially with tablets and then with nasal spray with the similar presentation both times of developing nausea following a general feeling of unwellness. The patient will have sodium checks every 4 hours. The patient will have serum osmolality checked and a urine osmolality checked. The patient is currently making very dilute urine likely due to diabetes insipidus. The patient will have fluid restriction of 1.5 L. The patient should not have her sodium corrected over 10 mmol per L daily and that a prudent goal is 6 daily. If the patient begins to look like she will overshoot these goals, the patient will be reintroduced with desmopressin at a lower dose. This case was discussed with Dr. Ty Elizabeth and he states this should be based on urine osmolalities. A repeat urine osmolality will be rechecked at 11 o'clock and repeat dose will be done at midnight per his instructions. 2. Asthma. The patient will have albuterol and daily QVAR, but the patient is not currently in exacerbation. 3. Gastroesophageal reflux disease. The patient states she does not take medications for this. 4. Obstructive sleep apnea. The patient is not currently using her CPAP. The patient refuses CPAP while in the hospital. 5. Chronic pain. Continue Percocet at home dose. The patient is not currently in extreme pain. 6. DVT prophylaxis: The patient will have SCDs and will be encouraged to ambulate frequently. 7. FEN: The patient will have fluid restriction and heart-healthy diet as above. 8. Disposition: The patient is admitted inpatient with expected length of stay greater than 48 hours. TIME SPENT: Approximately 75 minutes was spent on admission of this patient, about 45 of which was spent [id number] with the patient obtaining history and physical and discussing treatment plan. This plan was discussed with my attending, Dr. Flaca Roque and the patient's outpatient motor builder assembler, Dr. Ty Elizabeth and they are in agreement. ELIAZAR FAIR [id number]/[facility] #: [id number] MARIBETH
[2017-10-05] MEDS: FLUoxetine CAP* 20 MG PO SCH (21:04)
[2017-10-05] MEDS ORDERED: Ibuprofen TAB* 800 MG PO PRN (21:37)
[2017-10-05] MEDS ORDERED: D5W 1000 ML BAG* 1,000 ML IV SCH (22:00)
[2017-10-05] MEDS: Analgesic BALM* 114 GM TOPICAL SCH (23:00)
[2017-10-06] MEDS ORDERED: D5W 1000 ML BAG* 1,000 ML IV SCH ×2 (03:00→05:41)
--- NOTE | 2017-10-06 08:36 | PN ---
Subjective - Subjective Reason for Note: Consultation Note History: Endocrinology consultation: Diabetes insipidus with hyponatremia/low serum osmolality secondary to desmopressin therapy. I have obtained Diane Mills's presentation from ELIAZAR Kauffman's admitting history and physical. I am her primary chocolatier and I saw her as an out patient 09/25/17. I had given her a therapeutic trial of oral ddAVP 0.1 mg twice daily and she didn' t tolerate this - it gave her nuasea and vomiting - however, she stopped the medication before obtaining a blood test for her BMP, serum/urine osmolalities. I started her on DDAVP - 1 spray twice daily. She took 1 spray each nares twice daily. I prescribed 1 spray twice per day. She developed similar, but more severe symptoms to those she had with oral desmopressin. Light headedness , nausea, vomiting, some mild mental changes. She went to the ED and her serum Na was 119. She developed a diuresis upon withholding the desmopressin. Her serum sodium has risen overnight to 134. She is asymptomatic at present. She had no headache, nausea, vomiting, disorientation, problems with speech. She has her baseline visual field issues. 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 Gomez Post [place] - first pituitary surgery. 06/26/17 Dr. Law Post - second pituitary surgery - complicated by CSF leak and hypernatremia 07/04/2017 - she had an admission to [facility] [place] with hyponat[place]. 08/21/2017 - I saw her as an outpatient - she had polyuria/polydipsia and 2 measurements of serum osmolality that was raised in the context of low urine osmolality. I diagnosed mild diabetes insipidus. I started her on desmopressin 0.1 mg twice daily - as noted above she didn't tolerate this. Active Problems: Active Problems Diabetes insipidus (Acute) E23.2 Hyponatremia (Acute) E87.1 Asthma (Chronic) J45.909 Chronic headache disorder (Chronic) R51 GERD (gastroesophageal reflux disease) (Chronic) K21.9 History of pituitary tumor (Chronic) Z87.898 Hyperlipidemia (Chronic) E78.5 Vision loss, left eye (Chronic) H54.62 Current Medications: Current Medications Albuterol (Ventolin 2.5 Mg/3 Ml Neb.Bethany*) 2.5 mg INH Q4H PRN PRN Reason: SOB/WHEEZING Fluoxetine HCl (Prozac Cap*) 80 mg PO BEDTIME [facility] Last Admin: 10/05/17 21:04 Dose: 80 mg Dextrose (D5w 1000 Ml Bag*) 1,000 mls @ 100 mls/hr IV PER RATE [facility] Last Admin: 10/06/17 06:47 Dose: 100 mls/hr Ibuprofen (Motrin Tab*) 800 mg PO Q8H PRN PRN Reason: PAIN Mometasone Furoate (Asmanex 220 Mcg Mdi *) 2 puff INH QPM [facility] Last Admin: 10/05/17 20:10 Dose: 2 puff Multi-Ingredient Liniment/Rub (Anthony Dominguez*) 1 applic TOPICAL BID [facility] Last Admin: 10/05/17 23:00 Dose: 1 dose Ondansetron HCl (Zofran Inj*) 4 mg IV Q6H PRN PRN Reason: NAUSEA Oxycodone/Acetaminophen (Percocet 5/325 Tab*) 1 tab PO Q6H PRN PRN Reason: PAIN Home Medications: Home Medications Medication Instructions Recorded Confirmed Type Beclomethasone 80 MCG MDI(NF) 2 puff INH BID 07/03/17 10/05/17 History [Qvar 80 MCG MDI(NF)] FLUoxetine CAP* [Prozac CAP*] 80 mg PO BEDTIME cap 07/04/17 10/05/17 Rx Desmopressin 0.01% NASAL* 10 mcg BOTH NARES BID 10/05/17 10/05/17 History Allergies: Allergies Allergy/AdvReac Type Severity Reaction Status Date / Time sesame oil Allergy Anaphylatic Verified 10/05/17 17:27 Shock sesame seed Allergy Anaphylatic Verified 10/05/17 17:27 Shock PUMPKIN SEEDS Allergy Anaphylatic Uncoded 10/05/17 17:27 Shock Objective - Vital Signs Vital Signs: Vital Signs 10/05/17 10/05/17 10/05/17 11:01 15:44 16:16 Temperature 97.8 F 98.2 F 98.7 F Pulse Rate 67 69 64 Respiratory 18 18 18 Rate Blood Pressure 173/88 154/82 125/64 (mmHg) O2 Sat by Pulse 98 98 98 Oximetry 10/05/17 10/05/17 19:26 20:00 Temperature 98.6 F Pulse Rate 66 Respiratory 16 18 Rate Blood Pressure 137/71 (mmHg) O2 Sat by Pulse 99 Oximetry - Intake and Output Intake and Output: Intake & Output 10/03/17 10/04/17 10/05/17 10/06/17 11:59 11:59 11:59 11:59 Intake Total 300 Output Total 1850 Balance -1550 Weight 161 lb 157 lb Intake: IV Fluids 50 D5W 50 Oral 250 Output: Urine 1850 Other: # Bowel Movements 0 # Voids 0 ADLs: Meal Record Start: 10/05/17 16: 16 Freq: DAILY@0900,1400,1800 Status: Active Protocol: Created 10/05/17 16:16 System (Rec: 10/05/17 16:16 System [email or web address]) Document 10/05/17 18:00 [id number] (Rec: 10/05/17 19:28 [id number]) Document 10/05/17 20:41 [id number] (Rec: 10/05/17 20:41 [id number]) Intake and Output Start: 10/05/17 11: 06 Freq: Status: Active Protocol: Created 10/05/17 11:06 System (Rec: 10/05/17 11:06 System [id number]) Intake and Output Start: 10/05/17 16: 16 Freq: DAILY@0600,1400,2200 Status: Active Protocol: Created 10/05/17 16:16 System (Rec: 10/05/17 16:16 System [email or web address]) Document 10/05/17 17:16 [id number] (Rec: 10/05/17 17:40 [id number] [id number]) Document 10/05/17 18:00 [id number] (Rec: 10/05/17 18:44 [id number] TELE-M06) Document 10/05/17 18:52 [id number] (Rec: 10/05/17 18:52 [id number] TELE-C07) Document 10/05/17 21:35 [id number] (Rec: 10/05/17 21:36 [id number] TELE-C01) Document 10/06/17 00:06 (Rec: 10/06/17 00:07 TELE-C09) Document 10/06/17 06:00 [id number] (Rec: 10/06/17 06:32 [id number] [id number]) - Physical Exam General Physical Exam Comment: Warm, well perfused and in no distress General: No Cyanosis Eye Exam: bilateral: PERRLA, EOMI Skin: Normal: Rash Endocrine: No Central Obesity, No Hirsuitism, No Virilism, No Acromegaly, No Vitiligo, No Flushing, No Acanthosis nigricans, No Violaceious striae, No Marjan Syndrome, No Buccal pigmenatation, No Lackey Crease Pigmentation Lungs and Chest: Yes: Chest Expansion Full, Chest Expansion Symetrica, Percussion Note Resonant, Vessicular Breath Sounds. No: Crackles, Wheezes Heart Rate and Rhythm: Regular JVP: Not Elevated Additional Cardiovascular: Yes: Normal Heart Sounds. No: Heart Murmur, Pedal Edema Abdominal Exam: Yes: Soft, Bowel Sounds Present. No: Distention, Abdominal Mass , Abdominal Tenderness - Extremities Cranial Nerves II-XII Intact: Yes Limbs: Normal Power, Normal Tone - Neuro Orientation: A/O x3 Speech: Normal Results - Results Lab Results: Laboratory Results - last 24 hr 10/05/17 10/05/17 10/05/17 12:11 12:43 12:43 WBC 7.2 RBC 4.03 Hgb 12.0 Hct 35 MCV 86 MCH 30 MCHC 35 RDW 14 Plt Count 273 MPV 7.6 Neut % (Auto) 87.7 H Lymph % (Auto) 8.0 L [place] % (Auto) 3.8 Eos % (Auto) 0.2 Baso % (Auto) 0.3 Absolute Neuts (auto) 6.3 Absolute Lymphs (auto) 0.6 L Absolute Monos (auto) 0.3 Absolute Eos (auto) 0 Absolute Basos (auto) 0 Absolute Nucleated RBC 0 Nucleated RBC % 0.1 INR (Anticoag Therapy) 0.96 APTT 34.0 Sodium Potassium Chloride Carbon Dioxide Anion Gap BUN Creatinine Est GFR ( Amer) Est GFR (Non-Af Amer) BUN/Creatinine Ratio Glucose Serum Osmolality Calcium Total Bilirubin AST ALT Alkaline Phosphatase Troponin I Total Protein Albumin Globulin Albumin/Globulin Ratio Urine Color Colorless Urine Appearance Clear Urine pH 6.0 Ur Specific [place] 1.001 L Urine Protein Negative Urine Ketones Trace A Urine Blood 1+ A Urine Nitrate Negative Urine Bilirubin Negative Urine Urobilinogen Negative Ur Leukocyte Esterase Negative Urine WBC (Auto) Absent Urine RBC (Auto) Trace(0-2/hpf) Urine Bacteria Absent Urine Glucose Negative 10/05/17 10/05/17 10/05/17 12:43 15:14 15:14 WBC RBC Hgb Hct MCV MCH MCHC RDW Plt Count MPV Neut % (Auto) Lymph % (Auto) [place] % (Auto) Eos % (Auto) Baso % (Auto) Absolute Neuts (auto) Absolute Lymphs (auto) Absolute Monos (auto) Absolute Eos (auto) Absolute Basos (auto) Absolute Nucleated RBC Nucleated RBC % INR (Anticoag Therapy) APTT Sodium 119 L* 124 L Potassium 3.6 Chloride 87 L Carbon Dioxide 25 Anion Gap 7 BUN 6 Creatinine 0.65 Est GFR ( Amer) 111.0 Est GFR (Non-Af Amer) 91.8 BUN/Creatinine Ratio 9.2 Glucose 124 H Serum Osmolality 272 L Calcium 9.2 Total Bilirubin 0.80 AST 27 ALT 25 Alkaline Phosphatase 64 Troponin I 0.00 Total Protein 6.6 Albumin 4.1 Globulin 2.5 Albumin/Globulin Ratio 1.6 Urine Color Urine Appearance Urine pH Ur Specific [place] Urine Protein Urine Ketones Urine Blood Urine Nitrate Urine Bilirubin Urine Urobilinogen Ur Leukocyte Esterase Urine WBC (Auto) Urine RBC (Auto) Urine Bacteria Urine Glucose 10/05/17 10/05/17 10/06/17 18:37 20:58 00:29 WBC RBC Hgb Hct MCV MCH MCHC RDW Plt Count MPV Neut % (Auto) Lymph % (Auto) [place] % (Auto) Eos % (Auto) Baso % (Auto) Absolute Neuts (auto) Absolute Lymphs (auto) Absolute Monos (auto) Absolute Eos (auto) Absolute Basos (auto) Absolute Nucleated RBC Nucleated RBC % INR (Anticoag Therapy) APTT Sodium 126 L 128 L 129 L Potassium Chloride Carbon Dioxide Anion Gap BUN Creatinine Est GFR ( Amer) Est GFR (Non-Af Amer) BUN/Creatinine Ratio Glucose Serum Osmolality Calcium Total Bilirubin AST ALT Alkaline Phosphatase Troponin I Total Protein Albumin Globulin Albumin/Globulin Ratio Urine Color Urine Appearance Urine pH Ur Specific [place] Urine Protein Urine Ketones Urine Blood Urine Nitrate Urine Bilirubin Urine Urobilinogen Ur Leukocyte Esterase Urine WBC (Auto) Urine RBC (Auto) Urine Bacteria Urine Glucose 10/06/17 10/06/17 10/06/17 03:30 07:43 07:43 WBC RBC Hgb Hct MCV MCH MCHC RDW Plt Count MPV Neut % (Auto) Lymph % (Auto) [place] % (Auto) Eos % (Auto) Baso % (Auto) Absolute Neuts (auto) Absolute Lymphs (auto) Absolute Monos (auto) Absolute Eos (auto) Absolute Basos (auto) Absolute Nucleated RBC Nucleated RBC % INR (Anticoag Therapy) APTT Sodium 131 L 134 L 134 L Potassium 3.9 Chloride 103 Carbon Dioxide 28 Anion Gap 3 BUN 7 Creatinine 0.74 Est GFR ( Amer) 95.6 Est GFR (Non-Af Amer) 79.0 BUN/Creatinine Ratio 9.5 Glucose 114 H Serum Osmolality Calcium 9.2 Total Bilirubin AST ALT Alkaline Phosphatase Troponin I Total Protein Albumin Globulin Albumin/Globulin Ratio Urine Color Urine Appearance Urine pH Ur Specific [place] Urine Protein Urine Ketones Urine Blood Urine Nitrate Urine Bilirubin Urine Urobilinogen Ur Leukocyte Esterase Urine WBC (Auto) Urine RBC (Auto) Urine Bacteria Urine Glucose Radiology Results: Patient Name: DIANE MILLS Medical Record#: [id number] Ordering Physician: Reji Pascal MD Acct.#: [id number] : 1955 Age: 62 Sex: F Location: EMERGENCY DEPARTMENT Exam Date: 10/05/17 1204 ADM Status: REG ER Order Information: CHEST PA & LAT 2 VWS Accession Number: [id number] CPT: 52627 INDICATION: Weakness and dizziness and a woman potential experiencing an allergic reaction. COMPARISON: Most recent comparison chest x-rays dated July 03, 2017 TECHNIQUE: PA and lateral views of the chest were obtained. FINDINGS: The heart and mediastinum are normal in size and contour. The lungs are grossly clear. There is no evidence of large pleural effusion. Visualized bones are normal for the patient's age. There is no radiographic evidence of free air beneath the diaphragm IMPRESSION: No radiographic evidence of acute cardiopulmonary disease. <Electronically signed by Sandip Stinson MD in OV> 10/05/17 1246 Dictated By: Sandip Stinson MD Dictated Date/Time: 10/05/17 1246 Transcribed Date/Time: 10/05/17 1245 Copy to: CC:Reji Pascal MD; Diane Whitmore MD Imaging - [facility] Imaging - [facility] Imaging - [facility] [address] [place] [id number] [place] [id number] [place] [id number] ph ([phone]) ph ([phone]) ph ([phone]) This report is only to be considered final once signed by the Provider(s) as displayed in the "<Electronically Signed by >" field (s). Absence of a signature indicates the report is in a draft status and still needs to be finalized. In the event this document was created by someone other than the signing Provider, the individual initiating the document will be listed in the "Entered by:" or "Dictated by:" garcia. 1 of 1 Assessment - Problem List Assessment: Patient Problems Diabetes insipidus (Acute) Hyponatremia (Acute) Asthma (Chronic) Chronic headache disorder (Chronic) GERD (gastroesophageal reflux disease) (Chronic) History of pituitary tumor (Chronic) Hyperlipidemia (Chronic) Vision loss, left eye (Chronic) Plan: Diabetes insipidus (Acute) Hyponatremia (Acute) She has partial diabetes insipidus following a second pituitary surgery. She has had episodes of symptomatic hyponatremia following the use of desmopressin. Her sodium is normalizing. We started her on a single spray of desmopressin last night at pm. I think this may be all she needs. I will likely restart her on oral desmopressin as an outpatient, watching her BMP/serum osmolalities carefully. I will stop her IVF. I will reduce the frequency of serum sodium testing. I think she is likely to be ready for discharge tomorrow. Asthma (Chronic) not exacerbated Chronic headache disorder (Chronic) not significant this morning GERD (gastroesophageal reflux disease) (Chronic) no symptoms today History of pituitary tumor (Chronic) She is due for another MRI of her pituitary Hyperlipidemia (Chronic) secondary diagnosis Vision loss, left eye (Chronic) relates to her pituitary macroadenoma. I spoke about the above to the patient. She is concerned about central pontine myelinolysis from rapid correction of her serum sodium. I think this is unlikely as she did not have chronic hyponatremia. I think we will give her a single spray of desmopressin at bedtime.
[2017-10-06] MEDS: Analgesic BALM* 114 GM TOPICAL SCH ×2 (09:14→23:16)
--- NOTE | 2017-10-06 15:49 | PN ---
Subjective Date of Service: 10/06/17 Interval History: Feels well today. Thirsty. Very concerned about central pontine myelinolysis. No symptoms today, feels back to herself. Objective Active Medications: Albuterol (Ventolin 2.5 Mg/3 Ml Neb.Bethany*) 2.5 mg INH Q4H PRN PRN Reason: SOB/WHEEZING Desmopressin Acetate (Ddavp 0.01% Nasal *) 1 puff ALT NARE BEDTIME [facility] Fluoxetine HCl (Prozac Cap*) 80 mg PO BEDTIME [facility] Last Admin: 10/05/17 21:04 Dose: 80 mg Ibuprofen (Motrin Tab*) 800 mg PO Q8H PRN PRN Reason: PAIN Mometasone Furoate (Asmanex 220 Mcg Mdi *) 2 puff INH QPM [facility] Last Admin: 10/05/17 20:10 Dose: 2 puff Multi-Ingredient Liniment/Rub (Anthony Dominguez*) 1 applic TOPICAL BID [facility] Last Admin: 10/06/17 09:14 Dose: Not Given Ondansetron HCl (Zofran Inj*) 4 mg IV Q6H PRN PRN Reason: NAUSEA Oxycodone/Acetaminophen (Percocet 5/325 Tab*) 1 tab PO Q6H PRN PRN Reason: PAIN Vital Signs - 8 hr 10/06/17 10/06/17 10/06/17 07:50 08:00 11:36 Temperature 98.3 F 98.4 F Pulse Rate 60 65 Respiratory 16 18 16 Rate Blood Pressure 110/57 116/70 (mmHg) O2 Sat by Pulse 97 98 Oximetry Oxygen Devices in Use Now: None Appearance: alert, reading in bed comfortably Eyes: No Scleral Icterus Ears/Nose/Mouth/Throat: NL Teeth, Lips, Gums Neck: NL Appearance and Movements; NL JVP Respiratory: Symmetrical Chest Expansion and Respiratory Effort Cardiovascular: No Edema Skin: No Rash or Ulcers Neurological: Alert and Oriented x 3 Result Diagrams: 10/05/17 12:43 10/06/17 14:14 Assess/Plan/Problems-Billing Assessment: 62 yo f with history of pituitary adenoma resection and diabetes insipidus admitted with nausea and lethargy and was found to have hyponatremia after starting desmopressin outpatient. - Patient Problems (1) Hyponatremia Current Visit: Yes Status: Acute Code(s): E87.1 - HYPO-OSMOLALITY AND HYPONATREMIA SNOMED Code(s): 49143374 Comment: It seems she was taking 2 puffs in each nostril twice a day and was only supposed to take 1 puff in one nostril twice a day; it seems that the hyponatremia was due to desmopressin I see no need for a fluid restriction and will discontinue that now. It is rising quickly but this was clearly acute hyponatremia and she is not on fluids to adjust (2) Diabetes insipidus Current Visit: Yes Status: Acute Code(s): E23.2 - DIABETES INSIPIDUS SNOMED Code(s): 77992037 (3) History of pituitary tumor Current Visit: Yes Status: Chronic Code(s): Z87.898 - PERSONAL HISTORY OF OTHER SPECIFIED CONDITIONS SNOMED Code(s): 98520202834623 Status and Disposition: inpatient, recheck sodium in the morning
[2017-10-06] MEDS ORDERED: DESMOPRESSIN 0.01% ALT NARE SCH (21:00)
[2017-10-06] MEDS: FLUoxetine CAP* 20 MG PO SCH (21:09)
[2017-10-07] MEDS: Mometasone 220 MCG MDI INH SCH (06:59)
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
[2017-10-07 07:44] VITALS: BP 136/72
[2017-10-07] MEDS: Analgesic BALM* 114 GM TOPICAL SCH (08:51)
--- NOTE | 2017-10-07 15:52 | DS ---
CC: Dr. Kent; Dr. Elizabeth * DISCHARGE SUMMARY: DATE OF ADMISSION: 10/05/17. DATE OF DISCHARGE: 10/07/17. PRINCIPAL DISCHARGE DIAGNOSES: 1. Hyponatremia. 2. Central diabetes insipidus. SECONDARY DISCHARGE DIAGNOSES: 1. Depression. 2. History of pituitary tumor, status post resection. 3. Chronic headaches. 4. Asthma. DISCHARGE MEDICATIONS: 1. Beclomethasone 80 mcg MDI 2 puffs inhaled b.i.d. 2. Fluoxetine 80 mg q.h.s. 3. Desmopressin 0.1% nasal 10 mcg inhaled nightly in alternating nostrils. HOSPITAL COURSE BY PROBLEMS: 1. Hyponatremia. Ms. Mills was admitted lightheadedness, nausea, and vomiting, and was found to have a serum sodium of 119 in the emergency department. This occurred approximately 9 days after starting inhaled DDAVP as an outpatient. She was started on DDAVP several times over the past 3 months after she was diagnosed with diabetes insipidus postoperatively from a transsphenoidal pituitary adenoma removal. She is followed with Dr. Elizabeth during this time and has had trouble tolerating p.o. DDAVP. Please see his consultation for a full timeline of her treatment of diabetes insipidus. I suspected on this admission that the reason for her hyponatremia at presentation was that she was taking too much desmopressin at home. She was taking 2 puffs inhaled b.i.d. as listed on the prescription; however, when it was reduced to 1 puff inhaled daily, her sodium improved to normal. She has had complications with fluid restrictions in the past including dehydration and given the current heat wave, she is not recommended to monitor a fluid restriction, but is instructed that should she develop insatiable thirst, she is to call Dr. Elizabeth's office to be evaluated. She has a followup appointment with Dr. Elizabeth in 3 days. 2. Depression. She was continued on her home dose of fluoxetine. DISPOSITION: Ms. Mills is being discharged to home on 10/07/17 with a discharge serum sodium of 138. She understands her current recommended dose of desmopressin, which is the only change made to her medications on this admission. She has a followup appointment with Dr. Elizabeth in 3 days, and she will follow to schedule an appointment with Dr. Kent. [id number]/[facility] #: [id number] [facility]
== END 2017-10-07 10:45 | disposition home or self-care (01) | DRG 425 ==
LOC: ED 10:55 → MEDTELE 15:38
PROVIDERS: ADMIT Internal Medicine; ATTEND Internal Medicine
DX: E87.1 Hypo-osmolality and hyponatremia (principal); E23.2 Diabetes insipidus; F32.9 Major depressive disorder, single episode, unspecified; F41.9 Anxiety disorder, unspecified; E78.5 Hyperlipidemia, unspecified; H54.62 Unqualified visual loss, left eye, normal vision right eye; T38.895A Adverse effect of other hormones and synthetic substitutes, initial encounter; R51 Headache; J45.909 Unspecified asthma, uncomplicated; G47.33 Obstructive sleep apnea (adult) (pediatric); K21.9 Gastro-esophageal reflux disease without esophagitis; G89.29 Other chronic pain; Z86.018 Personal history of other benign neoplasm; Z88.8 Allergy status to other drugs, medicaments and biological substances; Z91.018 Allergy to other foods; Z80.3 Family history of malignant neoplasm of breast; Z80.0 Family history of malignant neoplasm of digestive organs; Z80.8 Family history of malignant neoplasm of other organs or systems; Z82.3 Family history of stroke; Z83.3 Family history of diabetes mellitus
CPT/HCPCS: 36415; 71046; 80048; 80053; 81003; 81015; 83930; 84300; 84484; 85025; 85610; 85730; 93005; 99284; A9270-GY

== ENCOUNTER 2018-12-08 08:56 | Day surgery (SDC) | payer OTHER, MEDICARE ==
[~2018-12-08 08:56] MED LIST: Buffered Lidocaine 1% SYRIN* 1 ML/SYRINGE INTRADERM ONE
[2018-12-08] MEDS ORDERED: Ketorolac 0.5% OPHTH (NF) 0.5 % 5 ML BTL ONE (09:15)
[2018-12-08] MEDS ORDERED: Neomycin/Polymy/Dex OPHTH.OIN* 3.5 GM ONE (09:15)
[2018-12-08] MEDS ORDERED: Cyclopentolate 1% OPTH.SOL* 2 ML BTL ONE (09:15)
[2018-12-08] MEDS ORDERED: Lidocaine 1% MPF ** 5 ML VIAL ONE (09:15)
[2018-12-08] MEDS ORDERED: Tropicamide 1% OPTH.SOL* BTL ONE (09:15)
[2018-12-08] MEDS ORDERED: Tetracaine 0.5% OPTH.SOL 4 ML* 1 DROP BTL ONE (09:15)
[2018-12-08] MEDS ORDERED: Phenylephrine OPHTH SOL 2.5%* 2 ML ONE (09:15)
[2018-12-08] MEDS ORDERED: Midazolam* 1 MG/ML 2 ML VIAL (2 MG) ONE (09:23)
--- NOTE | 2018-12-08 13:10 | OP ---
DATE OF OPERATION: 12/08/18 - [facility] DATE OF : 51 SURGEON: Dr. Kunal Colón. EARLY CHILDHOOD: None. ANESTHESIA: Topical with intravenous sedation. PRE-OP DIAGNOSIS: Cataract with glaucoma, right eye. POST-OP DIAGNOSIS: Cataract with glaucoma, right eye. OPERATIVE PROCEDURE: Phacoemulsification and cataract extraction with posterior chamber intraocular lens implant, right eye and i-Stent implant, right eye. COMPLICATIONS: None. BLOOD LOSS: None. DESCRIPTION OF PROCEDURE: The patient was brought to the operating room and given intravenous sedation. A drop of tetracaine was placed in her right eye. The patient was prepped and draped in the usual sterile fashion for ophthalmic surgery and attention was directed to the right eye where a speculum was placed. A paracentesis was created at the 11 o'clock position and 0.1 cc of 1% preservative- free lidocaine was injected into the anterior chamber followed by DisCoVisc. The eye was digitally stabilized while a 2.75 mm keratome was used to create a triplanar clear corneal incision at the 9 o'clock position. A continuous curvilinear capsulorrhexis was created with a cystotome and Utrata forceps. BSS on a cannula was used to hydrodissect the lens from the capsule. Phacoemulsification was performed in a [id number]-[id number] technique to create 4 fragments which were removed. Residual cortical material was removed with irrigation and aspiration. The capsular bag was polished. The capsular bag was filled with DisCoVisc. An [id number] 21.5 diopter lens was inserted into the capsular bag. Supplemental DisCoVisc was used to deepen the anterior chamber and and coat the surface of the cornea. The patient head was rotated away from the surgeon and the microscope was rotated toward the surgeon. A Gonio prism was placed on the surface of the eye. An iStent on its meter attendant was introduced into the anterior chamber. Under direct visualization, the iStent was placed into the nasal trabecular mesh. The meter attendant and prism were removed. The patient's head and the microscope were returned to a neutral position. Irrigation and aspiration were performed to remove viscoelastic from the eye. BSS on a cannula was used to hydrate the corneal stroma and seal the wound. At the end of the case, the pupil was round. The lens and iStent were centered and stable. The eye pressure appeared normal and the wound was watertight. The speculum was removed and topical Maxitrol ointment was placed on the surface of the eye. The eye was closed, patched and shielded. The patient was sent to the recovery room in stable condition with postoperative instructions and followup appointment given. [id number]/[facility] #: [id number] [facility]D
[2018-12-08 13:38] VITALS: BP 132/67
== END 2018-12-08 10:36 | disposition home or self-care (01) ==
LOC: OREAST 08:56
PROVIDERS: ATTEND Ophthalmology
PROC: 08RJ3JZ Replacement of Right Lens with Synthetic Substitute, Percutaneous Approach (ICD-10-PCS; principal; 2018-12-08 10:00)
DX: H25.11 Age-related nuclear cataract, right eye (principal); H40.9 Unspecified glaucoma; G47.33 Obstructive sleep apnea (adult) (pediatric); F41.8 Other specified anxiety disorders; K21.9 Gastro-esophageal reflux disease without esophagitis; J45.909 Unspecified asthma, uncomplicated; Z87.891 Personal history of nicotine dependence; Z79.51 Long term (current) use of inhaled steroids
CPT/HCPCS: A9270-GY; C1783; J2250; V2632

== ENCOUNTER → 2018-12-15 07:35 | Day surgery (SDC) | payer OTHER, MEDICARE ==
[~2018-12-15 07:35] MED LIST changes: +Cyclopentolate 1% OPTH.SOL* 2 ML BTL ONE; +Ketorolac 0.5% OPHTH (NF) 0.5 % 5 ML BTL ONE; +Lidocaine 1% MPF ** 5 ML VIAL ONE; +Midazolam* 1 MG/ML 2 ML VIAL (2 MG) ONE; +Neomycin/Polymy/Dex OPHTH.OIN* 3.5 GM ONE; +Phenylephrine OPHTH SOL 2.5%* 2 ML ONE; +Tetracaine 0.5% OPTH.SOL 4 ML* 1 DROP BTL ONE; +Tropicamide 1% OPTH.SOL* BTL ONE; +fentaNYL* 50 MCG/ML 2 ML VIAL (100 MCG VIAL) ONE
[2018-12-15 10:05] VITALS: BP 134/58
--- NOTE | 2018-12-15 12:18 | OP ---
DATE OF OPERATION: 12/15/18 [facility] DATE OF : 51 SURGEON: Kunal Colón MD THERAPEUTIC SALES SPECIALIST: None. ANESTHESIA: Topical with intravenous sedation. PRE-OP DIAGNOSIS: Cataract with astigmatism and glaucoma. POST-OP DIAGNOSIS: Cataract with astigmatism and glaucoma. OPERATIVE PROCEDURE: Phacoemulsification and cataract extraction with posterior chamber toric intraocular lens implant and iStent implant, left eye. COMPLICATIONS: None. ESTIMATED BLOOD LOSS: None. DESCRIPTION OF PROCEDURE: The patient was brought to the operating room and received intravenous sedation. A drop of Tetracaine was placed into her left eye. The patient was prepped and draped in the usual sterile fashion for ophthalmic surgery and attention was directed to the left eye where a speculum was placed. A paracentesis was created at the 5 o'clock position and 0.1 cc of 1% preservative free lidocaine was injected into the anterior chamber followed by DisCoVisc. The eye was digitally stabilized while a 2.75 mm keratome was used to create a triplanar clear corneal incision at the 3 o'clock position. A continuous curvilinear capsulorrhexis was created using a cystotome and Utrata forceps. BSS on a cannula was used to hydrodissect the lens from the capsule. Phacoemulsification was performed in a lqlcdo-qbw-crecpxh technique to create 4 fragments which were removed. Residual cortical material was removed with irrigation and aspiration. The capsular bag was polished. Provisc was used to inflate the capsular bag. The surface of the eye was lubricated. Intraocular pressure was checked and found to be appropriate to continuous ORA. The ORA device was employed. The lens selected was folded and inserted into the capsular bag. The [id number] 21.5 diopter lens was rotated to the 168 degree axis, the radical help guide lens rotation. At this point, DisCoVisc was used to deepen the anterior chamber and coat the surface of the cornea. The patient's head was rotated away from the surgeon and the microscope was rotated toward the surgeon. A gonioprism was placed in the surface of the eye. An iStent on its celery stripper was introduced into the anterior chamber. Under direct visualization, the iStent was inserted into the nasal trabecular meshwork. The celery stripper and prism were removed. The patient's head and the microscope were returned to a neutral position. Irrigation and aspiration was then performed to remove Viscoelastic from the eye with care taken not to disrupt the lens position. At the end of the case, the lens was stable, centered, and axially aligned. The eye pressure appeared normal. The wound was water tight. The iStent was in good position. The speculum was removed and topical Maxitrol ointment was placed in the surface of the eye. The eye was closed, patched, and shielded, and the patient was sent to recovery room in stable condition with postop instructions and followup appointment. [id number]/[facility] #: [id number] MARIBETH
== END | disposition home or self-care (01) ==
LOC: OREAST 07:35
PROVIDERS: ATTEND Ophthalmology
DX: H25.12 Age-related nuclear cataract, left eye (principal); H40.1121 Primary open-angle glaucoma, left eye, mild stage; G47.33 Obstructive sleep apnea (adult) (pediatric); J45.909 Unspecified asthma, uncomplicated; M54.5 Low back pain; F32.9 Major depressive disorder, single episode, unspecified
CPT/HCPCS: A9270-GY; C1783; J2250; J3010; V2787